=== PATIENT | female | born 1950 | race Caucasian/White ===

== ENCOUNTER → 2020-02-08 13:32 | Outpatient (BNVA) | payer MEDICARE, SELFPAY | PROVIDERS: Family Provider Nurse Practitioner; Visit Provider Orthopaedic Surgery | DX: M25.511 Pain in right shoulder (principal) | CPT/HCPCS: 73030 ==

== ENCOUNTER 2020-04-25 14:47 | Outpatient (CLI) | payer MEDICARE, SELFPAY ==
--- NOTE | 2020-04-25 15:43 | MR_ITS ---
WS: [id number] MRI RIGHT SHOULDER HISTORY: pain. COMPARISON: RIGHT shoulder radiograph 02/08/2020 TECHNIQUE: Multiplanar sequences of the shoulder joint are submitted. Mild hypertrophy and degenerative changes at the AC joint. Minimal encroachment upon the supraspinatu s muscle. There is slight downward curvature of the acromion. There is a moderate amount of fluid dis tending the subacromial and subdeltoid bursa. Humeral head is high riding and nearly touching the dis pantera acromion. Moderate atrophy of the supraspinatus muscle without significant fatty replacement or edema. The supr aspinatus tendon is completely torn and retracted to the level of the glenoid. The distal supraspinat us tendon demonstrates mild atrophy and thinning. Infraspinatus tendon is intact. There is significan t thickening of the distal subscapularis tendon. Insertion site tear is suspected but no full-thickne ss tear. No significant atrophy of the subscapularis muscle. Abnormal appearance of the biceps tendon in the bicipital groove. There are striations with increased signal. At the bicipital groove the tendon is abnormal and may be subluxed. There is at least a part ial tear approaching the bicipital groove. Adjacent humeral head osteophytes. No os acromion. Moderate narrowing of the glenohumeral joint. There is loss of cartilage with osteophytes. Abnormal s ignal in the anterosuperior labrum is degenerative. No tear is identified. MR/MR shoulder RT wo con* [id number] IMPRESSION: 1. Completely torn and retracted supraspinatus tendon with moderate atrophy of the supraspinatus muscle. Tendon retracted to the glenoid. 2. Moderate joint effusion with fluid also within the subacromial and subdelto id bursa. 3. Marked tendinopathy of the distal subscapularis tendon with insertion site tear. 4. Dislocated biceps tendon with split tear. 5. Moderate osteoarthritis at the glenohumeral joint and mild at the AC joint.
== END 2020-04-25 14:48 | disposition home or self-care (01) ==
LOC: RADSHAW 14:52
PROVIDERS: PCP Nurse Practitioner; Visit Provider Orthopaedic Surgery
DX: M75.121 Complete rotator cuff tear or rupture of right shoulder, not specified as traumatic (principal); X58.XXXA Exposure to other specified factors, initial encounter; M25.411 Effusion, right shoulder; S46.211A Strain of muscle, fascia and tendon of other parts of biceps, right arm, initial encounter; M19.011 Primary osteoarthritis, right shoulder
CPT/HCPCS: 73221

== ENCOUNTER 2020-05-01 08:04 | Day surgery (SDC) | payer MEDICARE, SELFPAY ==
[2020-04-30 13:20] VITALS: BMI 32.3
[2020-05-01 08:18] VITALS: BP 173/85; PULSE 87; RESP 18; TEMP 36.7; O2SAT 97
[2020-05-01] MEDS: sodium chloride 0.9% 1,000 ML 30 ML IV (08:34)
[2020-05-01 08:35] LABS: Glucose Point of Care 114 mg/dL (70-110)
--- NOTE | 2020-05-01 08:35 | ANES.PREANE2 ---
Pre-Anesthetic Assessment Pre-Anesthetic Assessment: Height/Weight: Height 1.68 m Weight 90.718 kg Temp Pulse Resp BP Pulse Ox 98.0 F 87 18 173/85 97 05/01/20 08:18 05/01/20 08:18 05/01/20 08:18 05/01/20 08:18 05/01/20 08:18 Preop Diagnosis: Right rotator cuff tear Proposed Procedure: Operation Date: 05/01/20 09:55 Proposed Procedures p Shoulder Arthroscopy subacromial decompression 33271 [id number] S43.421A(Right) - Kyle Davis MD s Rotator Cuff Repair(Right) - MD adin Woodruff Bicep Tenodesis(Right) - Kyle Davis MD Was Beta Estefanía taken within 24 hours: N/A Last intake: Intake Last Liquid Date 04/30/20 Last Liquid Time 23:00 Last Solid Date 04/30/20 Last Solid Time 21:00 Last Intake: 00:00 Social: Social History: No alcohol and No tobacco Comment: Quit smoking 1.5 years ago Exam: Pre-Anes Outpt Exam: alert, oriented x 3, clear to auscultation bilaterally and regular rate & rhythm Airway: Submandibular: WNL Cervical ROM: WNL MP: 2 Dentition: False History/ROS: No significant history except as noted and No significant complaints Pulmonary: Comments: Seasonal allergies CV/HEM: CV/HEM: HTN : : None reported Hepatic: Hepatic: None reported GI: GI: GERD Comments: Controlled GERD Metabolic: Metabolic: DM Musc/skel: Musc/skel: OA/DJD Neuropsych: Neuropsych: Anxiety Anesthetic Plan: ASA status: 3 Anesthesia: Anesthesia Evaluation and General Risk of > 500 ml blood loss (7ml/kg in children): No Meds/Allergies Current Medications: Current Medications Generic Name Dose Route Start Last Admin Trade Name Freq PRN Reason Stop Dose Admin Sodium Chloride 1,000 mls @ 30 ml s/hr 05/01/20 07:30 05/01/20 08:34 Sodium Chloride 0.9% IV 05/02/20 07:29 30 mls/hr .Q24H MARIUSZ Administration PFSH Anesthesia PFSH: Social History Smoking and tobacco status: never smoked Alcohol intake: never Data Anesthesia Other Labs: Laboratory Results - last 48 hr 05/01/20 08:32 POC Glucose 114 Cardiac Studies: No Data to Display
[2020-05-01] MEDS: midazolam 1 mg/mL INJ 2 mL 2 MG IVP (08:57)
--- NOTE | 2020-05-01 08:57 | ANES.PROC ---
Anesthesia Procedures Procedure/Date: 05/01/20 Nerve Block ^: Nerve Block 1: Main Anesthesia: general anesthesia Time Out Performed: Yes Consent: requested by attending/covering physician, from patient, risks and benefits reviewed and patient agrees to proceed Nerve block location: interscalene (R) Anesthesia monitors applied: pulse oximetry, BP cuff and oxygen Anesthetic Used: ropivicaine 0.5% (20) and with decadron (3 mg) Ultrasound used to: recognize landmarks, visualize and ID brachial plexus and visualize and ID interscalene groove Nerve Stimulator Used?: No Interscalene/Femoral BLK: 2 stimuplex 22 g needle used for position and inplane approach Injection: neg aspiration of heme and paresthesia +/- Patient Tolerated Procedure: well Complications: none
--- NOTE | 2020-05-01 09:12 | W.PM.OPSUD ---
Surgery/Procedure H&P Update DATE OF PROCEDURE: May 01, 2020 DATE H&P PERFORMED: 04/26/20 PREOP DIAGNOSIS: Right rotator cuff tear PLANNED PROCEDURE: Operation Date: 05/01/20 09:55 Proposed Procedures p Shoulder Arthroscopy subacromial decompression 45022 [id number] S43.421A(Right) - Kyle Davis MD s Rotator Cuff Repair(Right) - MD adin Woodruff Bicep Tenodesis(Right) - Kyle Davis MD
--- NOTE | 2020-05-01 11:45 | PM.OP ---
Operative Report Date of procedure: May 01, 2020 Pre-op Diagnosis: Right rotator cuff tear, impingement, dislocation right biceps tendon Post-op diagnosis: same Post-op Findings: Same Procedure Done: Arthroscopic right rotator cuff repair, arthroscopic right biceps tenodesis, arthroscopic right subacromial decompression Implants: Garcia and Nephew Helicoil 5.5 mm anchors x2, Garcia and Nephew Multifix anchor x2, Q fix anchor x2 Pathology: none sent Surgeon: Kyle Davis Anesthesia: General and Nerve Block (Interscalene) Estimated blood loss (mL): 20 Findings: The patient had a large tear of the rotator cuff beginning at the bicipital groove extending posteriorly approximately 2 cm with approximately 2 cm of tendinous retraction. Overall tendon quality was very good and the tendon was very mobile. She had some softening of her bone consistent with a history of a previous smoking. Her biceps tendon was subluxed out of the bicipital groove. She had prominent subacromial spurs Disposition: PACU Procedure: The patient was taken to the operating room after she was given an interscalene block. He was given 2 g of Ancef and positioned in the lateral position with her right arm in 15 pounds of traction. A timeout was performed. The shoulder was initially entered through a posterior portal suture 2 cm inferior medial to the posterior corner of the acromion. The glenohumeral arthroscopy was performed. The large rotator cuff tear was noted. The dislocated biceps tendon was identified.. She had generalized a softening of the cartilage of the humeral head and glenoid but no exposed subchondral bone. The scope was then redirected to the subacromial space. An additional anterior and a lateral portal were fashion. Initial attention was paid to the leading edge of the acromion. A Garcia and [employer] Werewolf probe was used to outline the leading edge of the acromion. A 5.5 mm acromionizer was introduced and approximately 5 mm of anterior and inferior acromion removed. Attention was then focused on the biceps tendon. Utilizing incisor shaver the proximal bicipital groove was debrided. Through a anterior stab wound a Garcia [employer] Nephew Q fix anchor was placed. The suture was retrieved around the biceps in a luggage tag fashion and secured binding the biceps to the debrided bone. A second Q fix anchor was placed just proximal to that reinforce the repair. Utilizing the werewolf and incisor shaver the remaining biceps was released from its insertion on the tuberosity. Next to the greater tuberosity was debrided of soft tissue with an incisor shaver. Through a small posterior medial incision a 4.5 mm Garcia and Nephew Helicoil anchor was placed. A Garcia and Nephew FirstPass suture passer was used to shuttle each limb of Ultrabraid through the cuff approximately 8 mm from the medial edge. A second Q fix anchor was placed anteriorly along the medial edge of the debrided tuberosity and those sutures passed in an identical fashion. The sutures from each anchor were then secured drawing the medial cuff to the medial aspect of the debrided tuberosity. Next 1 limb from each anchor was placed through the lateral suture passed through a multi-fix anchor which was placed posterior laterally and secured. A second multi-fix anchor was placed anteriorly and laterally and secured securing the lateral cuff laterally. The repair was probed and found to be stable. The shoulder was irrigated with saline. Portals were closed with 3-0 Prolene. Sterile dressings were applied. The patient was placed in a sling, extubated, taken recovery in stable condition.
[2020-05-01 11:53] VITALS: BP 132/81; PULSE 106; RESP 20; TEMP 36.1; O2SAT 100
[2020-05-01 12:00] VITALS: BP 132/81; PULSE 93; RESP 22; O2SAT 98
[2020-05-01 12:05] VITALS: BP 133/89; PULSE 95; RESP 18; TEMP 36.4; O2SAT 97
--- NOTE | 2020-05-01 12:09 | SUR.PHASEI ---
1200 PT HAS SENSATION/MOVEMENT TO L. FINGERS, CAP REFILL <3 SEC
[2020-05-01 12:10] VITALS: BP 146/93; PULSE 90; RESP 18; TEMP 36.4; O2SAT 95
[2020-05-01 12:34] VITALS: BP 166/80; PULSE 79; RESP 18; TEMP 36.4; O2SAT 96
== END 2020-05-01 13:10 | disposition home or self-care (01) ==
PROVIDERS: PCP Nurse Practitioner; Visit Provider Orthopaedic Surgery
PROC: (CPT 29805; principal; 2020-05-01 09:25)
PROC: (CPT 29826; 2020-05-01 09:25)
PROC: (CPT 23430; 2020-05-01 09:25)
DX: M75.101 Unspecified rotator cuff tear or rupture of right shoulder, not specified as traumatic (principal); M25.811 Other specified joint disorders, right shoulder; S43.004A Unspecified dislocation of right shoulder joint, initial encounter; X58.XXXA Exposure to other specified factors, initial encounter; I10 Essential (primary) hypertension; K21.9 Gastro-esophageal reflux disease without esophagitis; E11.9 Type 2 diabetes mellitus without complications; M19.90 Unspecified osteoarthritis, unspecified site; F41.9 Anxiety disorder, unspecified; Z79.82 Long term (current) use of aspirin
CPT/HCPCS: 29826; 29827; 29828; 12345; 36416; 51702; 82962; 96374; C1713; J0690; J1100; J2250; J2405; J2795; J3010; J7030

== ENCOUNTER 2020-10-21 14:04 | Outpatient (CLI) | payer MEDICARE, SELFPAY ==
--- NOTE | 2020-10-21 14:11 | MM_ITS ---
WS: [id number] BILATERAL SCREENING DIGITAL MAMMOGRAM WITH CAD HISTORY: SCREENING COMPARISON: 03/11/2017, 09/19/2018 and 10/13/2019 Bilateral CC and MLO views submitted. Computer aided detection analyzed. Breast composition: The breasts are heterogeneously dense, which may obscure small masses. No suspici ous masses, microcalcifications or architectural distortion. Calcifications in each breast are stable . Some of these calcifications are coarse and other calcifications are smaller and round. No addition al changes. There are additional biopsy clips in each breast. MM/[place] [id number] IMPRESSION: BI-RADS: 2-Benign FOLLOW UP: 1 Year Follow-up
--- NOTE | 2020-10-21 15:03 | XR_ITS ---
WS: [id number] SCREENING DEXA SCAN [employer] CLINICAL INFORMATION: POST MENOPAUSAL COMPARISON: None. FINDINGS: The L1-L4 bone mineral density measures 1.214 g/cm2. This corresponds to a T score score of 0.3 and Z score of 1.2. Left femoral neck bone mineral density measures 1.044 g/cm2. This corresponds to a T score of 0.3 and Z score of 1.2. Right femoral neck bone mineral density measures 1.065 g/cm2. This corresponds to a T score 0.5of and Z score of 1.4. Mean femoral neck bone mineral density measures 1.055 g/cm2. This corresponds to a T score of 0.4 and Z score of 1.3. XR/XR DEXA axial skeleton* [id number] IMPRESSION: Normal bone mineralization. Patient's FRAX calculated 10 year probability for major osteoporotic fracture i s 8.1 % and osteoporotic hip fracture is 0.7%.
== END 2020-10-21 14:05 | disposition home or self-care (01) ==
LOC: RADSHAW 14:09
PROVIDERS: PCP Nurse Practitioner; Visit Provider Nurse Practitioner
DX: Z12.31 Encounter for screening mammogram for malignant neoplasm of breast (principal); Z78.0 Asymptomatic menopausal state
CPT/HCPCS: 77067; 77080

== ENCOUNTER → 2021-07-31 10:25 | Outpatient (BNVA) | payer MEDICARE, SELFPAY | PROVIDERS: PCP Nurse Practitioner; Referring Provider Family Medicine; Visit Provider Orthopaedic Surgery | DX: M54.5 Low back pain (principal) | CPT/HCPCS: 72110 ==

== ENCOUNTER → 2021-08-06 10:54 | Outpatient (BNVA) | payer MEDICARE, SELFPAY | PROVIDERS: PCP Family Medicine; Referring Provider Orthopaedic Surgery; Visit Provider Anesthesiology Pain Medicine | DX: M54.5 Low back pain (principal); M54.2 Cervicalgia; M79.604 Pain in right leg; M79.605 Pain in left leg | CPT/HCPCS: 99205 ==

== ENCOUNTER 2022-05-05 09:59 | Outpatient (CLI) | payer MEDICARE, SELFPAY ==
--- NOTE | 2022-05-05 10:12 | MM_ITS ---
WS: [id number] BILATERAL SCREENING DIGITAL 2-D MAMMOGRAM WITH CAD HISTORY: SCREENING COMPARISON: 10/21/2020 and 10/13/2019 Bilateral CC and MLO views submitted. Computer aided detection analyzed. Breast composition: There are scattered areas of fibroglandular density. No suspicious masses, microc alcifications or architectural distortion. Numerous calcifications in each breast. Bilateral vascular calcifications. Prior biopsy clips in each breast. The extent of the calcifications has mildly incre ased but is very similar to the prior examination. No increasing cluster of calcifications. MM/[place] [id number] IMPRESSION: BI-RADS: 2-Benign FOLLOW UP: 1 Year Follow-up
== END 2022-05-05 10:00 | disposition home or self-care (01) ==
LOC: RAD 10:04
PROVIDERS: PCP Family Medicine; Visit Provider Family Medicine
DX: Z12.31 Encounter for screening mammogram for malignant neoplasm of breast (principal)
CPT/HCPCS: 77067

== ENCOUNTER → 2022-05-18 10:59 | Outpatient (BNVA) | payer MEDICARE, SELFPAY | PROVIDERS: PCP Family Medicine; Visit Provider Podiatrist Foot & Ankle Surgery | DX: M79.671 Pain in right foot (principal); M20.21 Hallux rigidus, right foot; M67.40 Ganglion, unspecified site | CPT/HCPCS: 73630; 99203; 99204 ==

== ENCOUNTER 2022-05-29 05:50 | Day surgery (SDC) | payer MEDICARE, SELFPAY ==
[2022-05-28 14:29] VITALS: BMI 32.3
[2022-05-29 06:02] VITALS: BP 184/84; PULSE 75; RESP 18; TEMP 36.6; O2SAT 97
[2022-05-29] MEDS: sodium chloride 0.9% 1,000 ML 30 ML IV (06:20)
[2022-05-29] MEDS: gabapentin 300 mg Capsule PO (06:20)
[2022-05-29] MEDS: CELEcoxib 200 mg Capsule 400 MG PO (06:20)
[2022-05-29 06:21] LABS: Glucose Point of Care 116 mg/dL (70-110)
--- NOTE | 2022-05-29 06:34 | P.ANESASSM_ITS ---
Pre-Anesthetic Assessment Height/Weight: Height 1.68 m Weight 90.718 kg Temp Pulse Resp BP Pulse Ox 97.8 F 75 18 184/84 97 05/29/22 06:02 05/29/22 06:02 05/29/22 06:02 05/29/22 06:02 05/29/22 06:02 Preop Diagnosis: Right hallux rigidus Operation Date: 05/29/22 07:00 Proposed Procedures p Cheilectomy 19665 ,M20.20(Right) - Paras Marks DPM Familial anesthetic complications: None Was Beta Estefanía taken within 24 hours: N/A Was Clonidine taken within 24 hours: N/A Last intake: Intake Last Liquid Date 05/28/22 Last Liquid Time 20:00 Last Solid Date 05/28/22 Last Solid Time 20:00 Social No alcohol and No tobacco former smoker Exam alert, oriented x 3, clear to auscultation bilaterally and regular rate & rhythm Airway Mallampati: Class II Dentition: false Pulmonary None reported CV/HEM Hypertension None reported Hepatic None reported GI Gastroesophageal Reflux Disease Metabolic Diabetes Mellitus and Hyperlipidemia [facility] None reported Neuropsych None reported Anesthetic Plan ASA status: 3 Anesthesia: MAC Risk of > 500 ml blood loss (7ml/kg in children): No Medications/Allergies Home Medications Medication Instructions Recorded Confirmed Last Taken Type aspirin 325 mg tablet 325 mg PO DAILY 02/08/20 05/28/22 05/27/22 20:00 History hydrochlorothiazide 25 mg tablet 25 mg PO DAILY 02/08/20 05/28/22 05/28/22 History lovastatin 40 mg tablet 40 mg PO DAILY 02/08/20 05/28/22 05/28/22 History metformin 500 mg tablet 500 mg PO BID 02/08/20 05/28/22 05/28/22 History nitroglycerin 0.4 mg sublingual 0.4 mg SUBLINGUAL Q5M PRN 02/08/20 05/28/22 05/28/22 History tablet omeprazole 20 mg capsule,delayed 20 mg PO DAILY 02/08/20 05/28/22 05/28/22 History release zolpidem 10 mg tablet 10 mg PO BEDTIME 02/08/20 05/28/22 05/27/22 History lisinopril 20 mg tablet 20 mg PO DAILY 04/30/20 05/28/22 05/28/22 History gabapentin 300 mg capsule 300 mg PO BID 08/06/21 05/28/22 05/28/22 History tramadol 50 mg tablet 50 mg PO DIRECTED 05/28/22 05/28/22 05/26/22 History Allergies Allergy/AdvReac Type Severity Reaction Status Date / Time sulfamethoxazole AdvReac nausea Verified 05/18/22 11:04 [From ] trimethoprim [From ] AdvReac nausea Verified 05/18/22 11:04 [facility] Anesthesia Social History Smoking and tobacco status: former smoker Alcohol intake: never Data Anesthesia Cardiac Studies: No Data to Display
--- NOTE | 2022-05-29 06:51 | W.PM.OPSUD ---
Surgery/Procedure H&P Update DATE OF PROCEDURE: May 29, 2022 DATE H&P PERFORMED: 05/18/22 CHANGES TO PREVIOUS DOCUMENTATION: None PREOP DIAGNOSIS: Right hallux rigidus PLANNED PROCEDURE: Operation Date: 05/29/22 07:00 Proposed Procedures p Cheilectomy 26185 ,M20.20(Right) - Paras Marks DPM
--- NOTE | 2022-05-29 06:55 | PM.OP ---
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 Procedure done: Cheilectomy, right foot. Implants: 3-0 Vicryl, 4-0 Vicryl, 5-0 Monocryl 30 cc of one-to-one mixture 1% lidocaine and 0.25% Marcaine plain in a right Ramos block fashion. Specimens removed/disposition: None Pathology: None Surgeon: Paras Marks D.P.M. 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 Brief History: Patient is a pleasant 71-year-old female with hallux rigidus to the right.? X-ray shows joint space narrowing at the right first metatarsal phalangeal joint, subchondral sclerosis, squaring off of the first metatarsal head as well as impressive osteophyte dorsally.? Has failed [id number] anti-inflammatories topically, has to avoid oral anti-inflammatories per primary care physician recommendation for concern of renal disease.? Has failed conservative treatments consisting of supportive shoes and anti-inflammatories as well as stretching and activity modifications.? Her pain is sharp and affects her daily.? Discussed cheilectomy with risks including but not limited to pain, bleeding, numbness, infection, failure to alleviate pain, reoccurrence of arthritic pain and need for further surgical intervention. Procedure: Under mild sedation the patient was brought to the operating room and remained on the gurney in supine position. A timeout was performed. Anesthesia was then administered by the anesthesia service. Local anesthesia was injected by myself consisting of 30 cc of one-to-one mixture 1% lidocaine and 0.25% Marcaine plain in a right Ramos block fashion. Well-padded pneumatic tourniquet applied to the right ankle. The right lower extremity was scrubbed, prepped and draped utilizing normal aseptic technique. Right foot was exanguinated with an Esmarch bandage and the tourniquet inflated to 250 mmHg. Attention was directed to the dorsal medial aspect of the right first metatarsal phalangeal joint where a linear longitudinal incision was made to skin and subcutaneous tissue with a #15 blade medial and parallel to the extensor houses longus tendon. Care was taken to retract and preserve neurovascular and tendinous structures. All bleeders were ligated and cauterized as necessary. Capsulotomy was performed in a linear fashion and tophaceous gout was appreciated this was debrided and flushed out in its entirety. Dorsal exostosis of the first metatarsal head and base of the proximal phalanx was transected utilizing sagittal saw and rongeur with all rough edges smoothed utilizing a hand rasp. Range of motion was improved at the right first metatarsophalangeal joint at approximately 55 degrees appreciated intraoperatively. This was smooth without crepitus. No further tophaceous gout was appreciated. No significant capsular thickening appreciated. Incision was flushed with saline solution. Capsular structures reapproximated utilizing 3-0 Vicryl, subcutaneous tissue reapproximated utilizing 4-0 Vicryl and skin with 5-0 Monocryl in a running intracuticular fashion. Benzoin and Steri-Strips applied across the incision followed by Adaptic sterile 4 x 4's, Kerlix Alexei wrap and a postop shoe. Tourniquet was deflated and a prompt hyperemic response is noted to the distal digits of the right foot. Patient tolerated the procedure and anesthesia well and was transferred to the PACU with vital signs stable and vascular status intact. Following a period of postoperative monitoring she will be discharged home and may be weightbearing as tolerated with the postoperative shoe she is to elevate her right foot while resting.
[2022-05-29] MEDS: lidocaine 2% INJ 20 mL 15 ML INJECTION (07:25)
[2022-05-29 07:42] VITALS: BP 113/62; PULSE 72; RESP 16; TEMP 36.3; O2SAT 95
[2022-05-29 07:50] VITALS: BP 120/68; PULSE 67; RESP 16; TEMP 36.6; O2SAT 95
--- NOTE | 2022-05-29 07:58 | XR_ITS ---
WS: [id number] XR foot RT min 3V* [id number] REASON FOR EXAM: post op cheilectomy FINDINGS: Compared to previous examination of 05/18/2022. There has been osteotomy removing a portion of the med ial most distal first metatarsal. No other significant interval change or new finding noted in the right foot compared to the previous examination of 622. XR/XR foot RT min 3V* [id number] IMPRESSION: Postoperative right foot without abnormality.
[2022-05-29 08:05] VITALS: BP 122/86; PULSE 67; RESP 16; TEMP 36.6; O2SAT 95
--- NOTE | 2022-05-29 10:00 | ANE.PACU2 ---
Inpatient post-anesthesia follow up: Airway intact: Yes Vital signs: Temperature 97.8 F Pulse Rate 67 Respiratory Rate 16 Blood Pressure 122/86 Pulse Oximetry 95 Oxygen Delivery Me thod Room Air Oxygen Flow Rate Fraction of Inspir ed Oxygen Hydration adequate: Yes Nausea and vomiting: No Pain level: 1 Mental status: Baseline
== END 2022-05-29 08:30 | disposition home or self-care (01) ==
PROVIDERS: PCP Family Medicine; Visit Provider Podiatrist Foot & Ankle Surgery
PROC: (CPT 28289; principal; 2022-05-29 07:00)
DX: M20.21 Hallux rigidus, right foot (principal); I10 Essential (primary) hypertension; K21.9 Gastro-esophageal reflux disease without esophagitis; E11.9 Type 2 diabetes mellitus without complications; E78.5 Hyperlipidemia, unspecified; Z79.82 Long term (current) use of aspirin; Z79.84 Long term (current) use of oral hypoglycemic drugs; Z87.891 Personal history of nicotine dependence
CPT/HCPCS: 28289; 36416; 73630; 82962; J2704; J3010; J3490; J7030

== ENCOUNTER → 2022-06-11 14:16 | Outpatient (BNVA) | payer MEDICARE, SELFPAY | PROVIDERS: PCP Family Medicine; Visit Provider Podiatrist Foot & Ankle Surgery | DX: Z98.890 Other specified postprocedural states (principal) | CPT/HCPCS: 99024 ==

== ENCOUNTER → 2022-10-27 11:33 | Outpatient (BNVA) | payer MEDICARE, SELFPAY | PROVIDERS: PCP Family Medicine; Visit Provider Podiatrist Foot & Ankle Surgery | DX: E11.42 Type 2 diabetes mellitus with diabetic polyneuropathy (principal); Z79.84 Long term (current) use of oral hypoglycemic drugs | CPT/HCPCS: 99214 ==

== ENCOUNTER 2023-10-20 14:00 | Outpatient (CLI) | payer MEDICARE, SELFPAY ==
--- NOTE | 2023-10-20 14:00 | MM_ITS ---
WS: [id number] BILATERAL 3D TOMOSYNTHESIS DIGITAL SCREENING MAMMOGRAPHY WITH CAD CLINICAL INFORMATION: SCREENING HISTORY: Screening mammogram. No current complaints. COMPARISON: 2021 TECHNIQUE: Bilateral CC and MLO views. FINDINGS: Scattered fibroglandular densities bilaterally. No suspicious focal mass, asymmetry, calcifications, or architectural distortion. No evidence of malignancy. Vascular calcifications. Incidental punctate and lucent centered calcifications. Surgical clips bilaterally. Stable clustered calcifications LEFT breast. IMPRESSION: MM/[place] [id number] BI-RADS: 2-Benign FOLLOW UP: 1 Year Follow-up Recommend return to annual screening mammography.
== END 2023-10-20 14:01 | disposition home or self-care (01) ==
LOC: MOBLMAM 12-03 12:16
PROVIDERS: PCP Family Medicine; Visit Provider Family Medicine
DX: Z12.31 Encounter for screening mammogram for malignant neoplasm of breast (principal)
CPT/HCPCS: 77063; 77067

== ENCOUNTER → 2024-12-20 09:12 | Outpatient (BNVA) | payer MEDICARE, SELFPAY | PROVIDERS: PCP Family Medicine; Visit Provider Podiatrist Foot & Ankle Surgery | DX: M79.671 Pain in right foot (principal); M79.672 Pain in left foot; E11.42 Type 2 diabetes mellitus with diabetic polyneuropathy; M77.42 Metatarsalgia, left foot; Z79.84 Long term (current) use of oral hypoglycemic drugs | CPT/HCPCS: 73630; 99213 ==

== ENCOUNTER 2025-02-14 12:50 | Outpatient (CLI) | payer MEDICARE, SELFPAY ==
--- NOTE | 2025-02-14 12:58 | XR_ITS ---
WS: [id number] SCREENING DEXA SCAN [employer] CLINICAL INFORMATION: ASYMPTOMATIC MENOPAUSAL STATE COMPARISON: None. FINDINGS: The L1-L4 bone mineral density measures 1.296 g/cm2. This corresponds to a T score score of 1.0 and Z score of 1.8. Left femoral neck bone mineral density measures 1.009 g/cm2. This corresponds to a T score of 0.0 and Z score of 1.0. Right femoral neck bone mineral density measures 1.019 g/cm2. This corresponds to a T score 0.1of and Z score of 1.1. Mean femoral neck bone mineral density measures 1.014 g/cm2. This corresponds to a T score of 0.1 and Z score of 1.1. XR/XR DEXA axial skeleton* [id number] IMPRESSION: Normal bone mineralization. Patient's FRAX calculated 10 year probability for major osteoporotic fracture i s 8.6% and osteoporotic hip fracture is 1.0%.
--- NOTE | 2025-02-14 12:58 | MM_ITS ---
WS: [id number] BILATERAL 3D TOMOSYNTHESIS DIGITAL SCREENING MAMMOGRAPHY WITH CAD CLINICAL INFORMATION: SCREENING HISTORY: Screening mammogram. No current complaints. COMPARISON: 2022 TECHNIQUE: Bilateral CC and MLO views. FINDINGS: Scattered fibroglandular densities bilaterally. No suspicious focal mass, asymmetry, calcifications, or architectural distortion. No evidence of malignancy. Incidental punctate and clustered calcifications. Stable clustered and some ductal appearing calcifications LEFT breast. Vascular calcifications. Surgical clips in the outer breast bilaterally. Biopsy clip LEFT breast. MM/MM scr tomosynthesis [id number] IMPRESSION: DENSITY: There are scattered areas of fibroglandular density. BI-RADS: 2 - Benign. FOLLOW UP: 1 Year Follow-up Recommend return to annual screening mammography.
== END 2025-02-14 12:51 | disposition home or self-care (01) ==
PROVIDERS: PCP Family Medicine; Visit Provider Family Medicine
DX: Z12.31 Encounter for screening mammogram for malignant neoplasm of breast (principal); Z78.0 Asymptomatic menopausal state; R92.323 Mammographic fibroglandular density, bilateral breasts; R92.1 Mammographic calcification found on diagnostic imaging of breast
CPT/HCPCS: 77063; 77067; 77080